=== PATIENT | male | born 1970 | race Caucasian/White ===

== ENCOUNTER → 2016-09-29 | Outpatient (CLI) | payer OTHER | LOC: RT 09:47 | PROVIDERS: ATTEND Neuromusculoskeletal Medicine, Sports Medicine | DX: Z02.71 Encounter for disability determination (principal) | CPT/HCPCS: 94060 ==

== ENCOUNTER → 2016-12-14 | Outpatient (CLI) | payer OTHER ==
--- NOTE | 2016-12-14 15:40 | Diagnostic Imaging Report ---
Ultrasound noninvasive extremity bilateral. INDICATION: Bilateral vascular reflux in legs. There are no prior studies available for comparison. The ankle-brachial indices of both lower extremities were obtained in the usual fashion. The ankle-brachial index on the right is 1.29 and on the left 1.15 (normal 1.00 or greater.) IMPRESSION: The ankle-brachial indices are within normal limits. Dictated by: Dictated on workstation # [id number]
== END ==
LOC: RAD 09:38
PROVIDERS: ATTEND Surgery
DX: Z02.71 Encounter for disability determination (principal)
CPT/HCPCS: 93922

== ENCOUNTER 2017-02-23 21:15 | Emergency (ER) | payer SELFPAY ==
[~2017-02-23] VITALS: Ht 170.2 cm; Wt 117.9 kg
--- NOTE | 2017-02-23 21:22 | ED Upper Extremity ---
General Stated Complaint: L HAND INJ/TETANUS SHOT Source: patient Exam Limitations: no limitations History of Present Illness Time seen by provider: 21:20 Initial Comments To ER with a 3 mm scratch to the dorsal aspect of the right knuckle from a ahyden nail. He like a tetanus shot. Onset: just prior to arrival Severity: mild Pain/Injury Location: left 2nd finger Method of Injury: unknown Modifying Factors: Worse With Movement Allergies and Home Medications Allergies Coded Allergies: chlorhexidine (Verified Allergy, Unknown, 06/03/16) Constitutional: see HPI EENTM: see HPI Respiratory: no symptoms reported Cardiovascular: no symptoms reported Genitourinary: no symptoms reported Musculoskeletal: no symptoms reported Skin: see HPI Past Vbdegxj-Ranpwr-Ibllnv Hx Patient Social History Type Used: Cigarettes Recent Foreign Travel: No Contact w/Someone Who Travel: No Recent Hopitalizations: No Seasonal Allergies Seasonal Allergies: No Surgeries HX Surgeries: Yes (BLE CATHETERIZATIONS) Surgeries: Coronary Stent Respiratory Hx Respiratory Disorders: Yes Respiratory Disorders: COPD Cardiovascular Hx Cardiac Disorders: Yes Cardiac Disorders: Coronary Artery Disease, Heart Attack, High Cholesterol Neurological Hx Neurological Disorders: No Genitourinary Hx Genitourinary Disorders: No Gastrointestinal Hx Gastrointestinal Disorders: No Musculoskeletal Hx Musculoskeletal Disorders: Yes (SCIATICA) Endocrine Hx Endocrine Disorders: Yes (BORDERLINE DM) HEENT HX ENT Disorders: No Cancer Hx Cancer: No Psychosocial Hx Psychiatric Problems: No Integumentary HX Skin/Integumentary Disorder: No Blood Transfusions Hx Blood Disorders: No Physical Exam Vital Signs Capillary Refill : General Appearance: WD/WN, no apparent distress HEENT: PERRL/EOMI, normal ENT inspection Neck: non-tender, full range of motion Respiratory: no respiratory distress, no accessory muscle use Gastrointestinal: normal bowel sounds, non tender, soft Shoulder: normal inspection, non-tender Elbow/Forearm: normal inspection, non-tender, no evidence of injury Wrist: Yes normal inspection, Yes non-tender Hand: normal inspection, no evidence of injury, Left, laceration (there is a 3 mm scratch the dorsal second MCP joint that does not require closure. There is no active bleeding. There is no erythema or swelling. No ecchymosis. Full range of motion of the hand and all fingers.) Neurologic/Tendon: normal sensation, normal motor functions, normal tendon functions Neurologic/Psychiatric: alert, normal mood/affect, oriented x 3 Departure Impression Impression: Primary Impression: Abrasion of hand Disposition: HOME, SELF-CARE Condition: Stable Departure-Patient Inst. Decision time for Depature: 21:22 Referrals: BISHOP GONZALEZ DO (PCP) Primary Care Physician FARZANEH FELICIANO APRN (Family) Primary Care Physician Patient Instructions: NO INSTRUCTIONS GIVEN Add. Discharge Instructions: 1. Return to ER for any concerns PAMELA DOMINGUEZ APRN Feb 23, 2017 21:22
[2017-02-23] MEDS ORDERED: TETANUS,DIPTH,PERTUSS P/F (BOOSTRIX) 0.5 ML VIAL IM ONE (21:30)
[2017-02-23 21:34] VITALS: BP 135/82
[2017-02-23] MEDS ORDERED: BACL10TA (22:12)
[2017-02-23] MEDS ORDERED: SERT50TA9 (22:12)
[2017-02-23] MEDS ORDERED: METF500T8 (22:12)
[2017-02-23] MEDS ORDERED: ROPI0.25 (22:12)
[2017-02-23] MEDS ORDERED: METO-333 (22:12)
[2017-02-23] MEDS ORDERED: OMEP40CA36 (22:12)
[2017-02-23] MEDS ORDERED: TIZA2TAB3 (22:12)
== END 2017-02-23 21:30 | disposition home or self-care (01) ==
LOC: EDUNIT# 21:15 → ER 21:17
DX: S60.511A Abrasion of right hand, initial encounter (principal); I25.10 Atherosclerotic heart disease of native coronary artery without angina pectoris; F17.210 Nicotine dependence, cigarettes, uncomplicated; J44.9 Chronic obstructive pulmonary disease, unspecified; Z95.5 Presence of coronary angioplasty implant and graft; X58.XXXA Exposure to other specified factors, initial encounter
CPT/HCPCS: 90471; 90715; 99282

== ENCOUNTER → 2017-03-12 | Emergency (ER) | payer OTHER ==
[~2017-03-12] VITALS: Ht 170.2 cm; Wt 117.9 kg
[~2017-03-12] MED LIST: ASPIRIN 81 MG CHEW (CHILDREN'S ASA) PO ONE; BACL10TA; METF500T8; METO-333; OMEP40CA36; ROPI0.25; RX-NITROGLYCERIN 0.4 MG TAB BTL 25'S SL PRN; SERT50TA9; TIZA2TAB3; morphine INJ 10 MG/ML 1ML (SYR OR VIAL) IV STA
--- NOTE | 2017-03-12 16:33 | ED Chest Pain ---
General Stated Complaint: CHEST PAIN Source: patient Exam Limitations: no limitations History of Present Illness Time seen by provider: 16:22 Initial Comments Patient presents to ER with his and child by private conveyance with concern for 2-3 days of progressively worsening intermittent substernal chest pain that becomes very severe with lots of pressure and it takes his breath away when it happens for several minutes. He does not take anything for it. He has not use any nitroglycerin last several days. He does recount that he's had 2 heart attacks in the past and has had 3 stents placed. Most recently was 2012 in [place]. He is on a cholesterol medicine as well as a took a baby aspirin this morning. He denies any thyroid problems but states he does have high blood pressure. He says he is a borderline diabetic. He does smoke but denies drinking or using any drugs in the past. He denies shortness of breath or nausea at this time. No sweats or chills. Allergies and Home Medications Allergies Coded Allergies: chlorhexidine (Verified Allergy, Unknown, 06/03/16) Home Medications Baclofen 10 Mg Tablet, #84 (Reported) Metformin HCl 500 Mg Tab.er.24h, #180 (Reported) Metoprolol Tartrate 25 Mg Tablet, #26 (Reported) Omeprazole 40 Mg Capsule.dr, #30 (Reported) Ropinirole HCl 0.25 Mg Tablet, #30 (Reported) Sertraline HCl 50 Mg Tablet, #30 (Reported) Tizanidine HCl 2 Mg Tablet, #90 (Reported) Review of Systems Constitutional: No chills, No diaphoresis, No fever, malaise EENTM: No Eye Pain, No Ear Pain Respiratory: Denies Shortness of Air, Denies Wheezing Cardiovascular: See HPI, Chest Pain, Denies Edema, Denies Irregular Heart Rate , Denies Palpitations, Denies Syncope Gastrointestinal: Denies Constipated, Denies Diarrhea, Denies Nausea, Denies Vomiting Genitourinary: Denies Burning, Denies Discharge Musculoskeletal: No back pain, No joint pain Skin: No pruritus, No rash Psychiatric/Neurological: Denies Headache, Denies Paresthesia Past Aviqavl-Yoedqk-Akgomq Hx Patient Social History Alcohol Use: Denies Use Recreational Drug Use: No Smoking Status: Current Everyday Smoker (1 ppd) Type Used: Cigarettes Recent Foreign Travel: No Contact w/Someone Who Travel: No Recent Hopitalizations: No Seasonal Allergies Seasonal Allergies: No Surgeries HX Surgeries: Yes (BLE CATHETERIZATIONS) Surgeries: Coronary Stent Respiratory Hx Respiratory Disorders: Yes Respiratory Disorders: COPD Cardiovascular Hx Cardiac Disorders: Yes Cardiac Disorders: Coronary Artery Disease, Heart Attack, High Cholesterol Neurological Hx Neurological Disorders: No Genitourinary Hx Genitourinary Disorders: No Gastrointestinal Hx Gastrointestinal Disorders: No Musculoskeletal Hx Musculoskeletal Disorders: Yes (SCIATICA) Endocrine Hx Endocrine Disorders: Yes (BORDERLINE DM) HEENT HX ENT Disorders: No Cancer Hx Cancer: No Psychosocial Hx Psychiatric Problems: No Integumentary HX Skin/Integumentary Disorder: No Blood Transfusions Hx Blood Disorders: No Physical Exam Vital Signs Vital Sign - Last 12Hours 03/12/17 03/12/17 16:28 16:29 Pulse 77 Resp 16 B/P (MAP) 115/74 Pulse Ox 98 O2 Delivery Nasal Cannula O2 Flow Rate 2.0 FiO2 100 Capillary Refill : General Appearance: WD/WN, Mild Distress HEENT: PERRL/EOMI, Pharynx Normal Neck: Full Range of Motion, Supple Respiratory: Lungs Clear, Normal Breath Sounds, No Respiratory Distress Cardiovascular: Regular Rate, Rhythm, No Edema, No Gallop, No JVD, No Murmur, Normal Peripheral Pulses Gastrointestinal: Normal Bowel Sounds, Non Tender, Soft Extremity: Normal Capillary Refill, Normal Inspection, No Calf Tenderness Neurologic/Psychiatric: Alert, Oriented x3 Skin: Normal Color, Warm/Dry Lymphatic: No Adenopathy Progress/Results/Core Measures Results/Orders Lab Results Laboratory Tests Test 03/12/17 16:33 Range/Units White Blood Count 9.6 4.3-11.0 10^3/uL Red Blood Count 4.99 4.35-5.85 10^6/uL Hemoglobin 14.5 13.3-17.7 G/DL Hematocrit 44 40-54 % Mean Corpuscular Volume 88 80-99 FL Mean Corpuscular Hemoglobin 29 25-34 PG Mean Corpuscular Hemoglobin Concent 33 32-36 G/DL Red Cell Distribution Width 13.4 10.0-14.5 % Platelet Count 222 130-400 10^3/uL Mean Platelet Volume 9.0 7.4-10.4 FL Neutrophils (%) (Auto) 49 42-75 % Lymphocytes (%) (Auto) 40 12-44 % Monocytes (%) (Auto) 9 0-12 % Eosinophils (%) (Auto) 3 0-10 % Basophils (%) (Auto) 0 0-10 % Neutrophils # (Auto) 4.7 1.8-7.8 X 10^3 Lymphocytes # (Auto) 3.8 1.0-4.0 X 10^3 Monocytes # (Auto) 0.8 0.0-1.0 X 10^3 Eosinophils # (Auto) 0.3 0.0-0.3 10^3/uL Basophils # (Auto) 0.0 0.0-0.1 10^3/uL Prothrombin Time 13.3 12.2-14.7 SEC INR Comment 1.0 0.8-1.4 Activated Partial Thromboplast Time 27 24-35 SEC D-Dimer 0.28 0.00-0.49 UG/ML Sodium Level 142 135-145 MMOL/L Potassium Level 3.6 3.6-5.0 MMOL/L Chloride Level 109 H 98-107 MMOL/L Carbon Dioxide Level 21 21-32 MMOL/L Anion Gap 12 5-14 MMOL/L Blood Urea Nitrogen 10 7-18 MG/DL Creatinine 0.76 0.60-1.30 MG/DL Estimat Glomerular Filtration Rate > 60 BUN/Creatinine Ratio 13 Glucose Level 100 70-105 MG/DL Calcium Level 9.0 8.5-10.1 MG/DL Magnesium Level 1.9 1.8-2.4 MG/DL Total Bilirubin 0.6 0.1-1.0 MG/DL Aspartate Amino Transf (AST/SGOT) 17 5-34 U/L Alanine Aminotransferase (ALT/SGPT) 14 0-55 U/L Alkaline Phosphatase 104 40-136 U/L Myoglobin 40.5 10.0-92.0 NG/ML Troponin I < 0.30 <0.30 NG/ML B-Type Natriuretic Peptide 17.0 <100.0 PG/ML Total Protein 6.6 6.4-8.2 GM/DL Albumin 3.8 3.2-4.5 GM/DL Amylase Level 29 25-125 U/L Lipase 8 8-78 U/L My Orders Orders - ARIAS NOVAK Cbc With Automated Diff (03/12/17 16:33) Magnesium (03/12/17 16:33) Chest 1 View, Ap/Pa Only (03/12/17 16:33) Ekg Tracing (03/12/17 16:33) Cardiac Profile 1 (03/12/17 16:33) Comprehensive Metabolic Panel (03/12/17 16:33) Myoglobin Serum (03/12/17 16:33) Protime With Inr (03/12/17 16:33) Partial Thromboplastin Time (03/12/17 16:33) O2 (03/12/17 16:33) Monitor-Rhythm Ecg Trace Only (03/12/17 16:33) Lipid Panel (03/13/17 06:00) Aspirin Chewable Tablet (Baby Aspirin Ch (03/12/17 16:45) Rx-Nitroglycerin Sl Tabs (Rx-Nitrostat S (03/12/17 16:45) Morphine Injection (Morphine Injection (03/12/17 16:33) Saline Lock/Iv-Start (03/12/17 16:33) Lipase (03/12/17 16:33) Amylase (03/12/17 16:33) BNP (03/12/17 16:33) Fibrin Degradation Products (03/12/17 16:33) Medications Given in ED Current Medications Medications Dose Ordered Sig/Yvonne Route Start Time Stop Time Status Last Admin Dose Admin Aspirin 324 mg ONCE ONCE PO 03/12/17 16:45 03/12/17 16:46 DC 03/12/17 16:41 324 MG Vital Signs/I&O Vital Sign - Last 12Hours 03/12/17 03/12/17 03/12/17 16:28 16:28 16:29 Pulse 77 Resp 16 B/P (MAP) 115/74 Pulse Ox 98 97 O2 Delivery Nasal Cannula Nasal Cannula O2 Flow Rate 2.0 2.0 2.00 FiO2 100 Progress Note : Time: 17:33 Progress Note Heart scores 5 which is moderate risk. This patient would probably benefit from an observation overnight. ECG Initial ECG Impression Date: Mar 12, 2017 Initial ECG Impression Time: 16:28 Initial ECG Rate: 79 Initial ECG Rhythm: Normal Sinus Initial ECG Intervals: Normal Initial ECG Impression: Nonspecific Changes Initial ECG Comparisson: No Previous ECG Available Comment No ST-T wave elevation or depression. Possible right bundle branch block incomplete. Diagnostic Imaging Diagonstic Imaging: Xray Plain Films/CT/US/NM/MRI: chest Comments No acute cardiopulmonary processes noted. NAME: LEANDRA KOTHARI REC#: [id number] PT STATUS: REG ER : 1970 PHYSICIAN: ARIAS NOVAK MD ADMIT DATE: 03/12/17/ER Draft Date of Exam:03/12/17 CHEST 1 VIEW, AP/PA ONLY INDICATION: Chest pain for three days. Baseline. FINDINGS: The lungs are well-aerated. There are no infiltrate. Heart is upper limits of normal. There is no evidence of pulmonary edema. No hilar adenopathy. No pneumothorax or pleural effusion. IMPRESSION: No acute changes demonstrated. Dictated on workstation # [id number] Dict: 03/12/17 1700 Trans: 03/12/171702 [facility] [id number] Interpreted by: OCTAVIO RILEY MD Reviewed: Reviewed by Me Departure Communication Time/Spoke to Consulting Physi: 17:36 Communication/Consulting Dr. Britany Warner: Discussed the case she is okay with observation and will see the patient in the morning. Impression Impression: Primary Impression: Chest pain Qualified Codes: R07.9 - Chest pain, unspecified Disposition: ADMITTED INPATIENT (obs) Condition: Stable Decision to Admit Reason: Admit from ER (General) Decision to Admit/Date: Mar 12, 2017 Time/Decision to Admit Time: 17:55 Departure-Patient Inst. Referrals: BISHOP GONZALEZ DO (PCP) Primary Care Physician FARZANEH FELICIANO APRN (Family) Primary Care Physician Copy Copies To 1: BISHOP GONZALEZ TITUS J Mar 12, 2017 16:33
[2017-03-12 16:40] LABS: BASOPHILS % (AUTO) 0 % (0-10); EOSINOPHILS # (AUTO) 0.3 10^3/uL (0.0-0.3); EOSINOPHILS % (AUTO) 3 % (0-10); LYMPHOCYTES # (AUTO) 3.8 X 10^3 (1.0-4.0); LYMPHOCYTES % (AUTO) 40 % (12-44); MEAN CORPUSCULAR HEMOGLOBIN 29 PG (25-34); MEAN CORPUSCULAR HGB CONC 33 G/DL (32-36); MEAN CORPUSCULAR VOLUME 88 FL (80-99); MONOCYTES # (AUTO) 0.8 X 10^3 (0.0-1.0); MONOCYTES % (AUTO) 9 % (0-12); NEUTROPHILS # (AUTO) 4.7 X 10^3 (1.8-7.8); NEUTROPHILS % (AUTO) 49 % (42-75); PLATELET COUNT 222 10^3/uL (130-400); RED BLOOD COUNT 4.99 10^6/uL (4.35-5.85); RED CELL DISTRIBUTION WIDTH 13.4 % (10.0-14.5); WHITE BLOOD COUNT 9.6 10^3/uL (4.3-11.0)
[2017-03-12 16:52] LABS: PROTHROMBIN TIME PATIENT 13.3 SEC (12.2-14.7)
[2017-03-12 17:02] LABS: ALANINE AMINOTRANSFERASE 14 U/L (0-55); ALBUMIN 3.8 GM/DL (3.2-4.5); AMYLASE 29 U/L (25-125); ANION GAP 12 MMOL/L (5-14); ASPARTATE AMINO TRANSFERASE 17 U/L (5-34); BILIRUBIN,TOTAL 0.6 MG/DL (0.1-1.0); BLOOD UREA NITROGEN 10 MG/DL (7-18); BUN/CREATININE RATIO 13; CARBON DIOXIDE 21 MMOL/L (21-32); CHLORIDE 109 MMOL/L (98-107); CREATININE SERUM 0.76 MG/DL (0.60-1.30); GFR ESTIMATED > 60; GLUCOSE 100 MG/DL (70-105); LIPASE 8 U/L (8-78); MAGNESIUM 1.9 MG/DL (1.8-2.4); POTASSIUM 3.6 MMOL/L (3.6-5.0); SODIUM 142 MMOL/L (135-145); TOTAL PROTEIN 6.6 GM/DL (6.4-8.2)
--- NOTE | 2017-03-12 17:03 | Diagnostic Imaging Report ---
INDICATION: Chest pain for three days. Baseline. FINDINGS: The lungs are well-aerated. There are no infiltrate. Heart is upper limits of normal. There is no evidence of pulmonary edema. No hilar adenopathy. No pneumothorax or pleural effusion. IMPRESSION: No acute changes demonstrated. Dictated by: Dictated on workstation # [id number]
[2017-03-12 17:08] LABS: MYOGLOBIN SERUM 40.5 NG/ML (10.0-92.0)
[2017-03-12 18:24] VITALS: BP 122/77
== END | disposition other institution (70) ==
LOC: EDUNIT# 16:28 → ER 16:29 → UNDOADMOB 17:55 → 4TH 17:55
DX: R07.2 Precordial pain (principal); I25.2 Old myocardial infarction; J44.9 Chronic obstructive pulmonary disease, unspecified; I25.10 Atherosclerotic heart disease of native coronary artery without angina pectoris; E78.00 Pure hypercholesterolemia, unspecified; R73.09 Other abnormal glucose; F17.210 Nicotine dependence, cigarettes, uncomplicated; Z95.5 Presence of coronary angioplasty implant and graft; Z79.84 Long term (current) use of oral hypoglycemic drugs
CPT/HCPCS: 36415; 71010; 80053; 82150; 83690; 83735; 83874; 83880; 84484; 85025; 85379; 85610; 85730; 93041

== ENCOUNTER 2017-03-20 17:52 | Emergency (ER) | payer SELFPAY ==
[~2017-03-20 17:52] MED LIST changes: -ASPIRIN 81 MG CHEW (CHILDREN'S ASA) PO ONE; -RX-NITROGLYCERIN 0.4 MG TAB BTL 25'S SL PRN; -morphine INJ 10 MG/ML 1ML (SYR OR VIAL) IV STA
[2017-03-20] MEDS ORDERED: ALBU18HF2 IH (19:24)
[2017-03-20] MEDS ORDERED: ASPI-586 PO (19:24)
[2017-03-20] MEDS ORDERED: GABA-486 PO (19:24)
[2017-03-20] MEDS ORDERED: TIOT18CA2 IH (19:24)
[2017-03-20] MEDS ORDERED: PRAS5TAB3 PO (19:24)
[2017-03-20 19:32] VITALS: BP 119/83
== END 2017-03-20 19:32 | disposition left against medical advice (07) ==
LOC: EDUNIT# 17:52 → ER 17:54
DX: S61.411A Laceration without foreign body of right hand, initial encounter (principal)
CPT/HCPCS: 99281

== ENCOUNTER 2017-03-23 19:27 | Emergency (ER) | payer SELFPAY ==
[~2017-03-23] VITALS: Ht 170.2 cm; Wt 117.9 kg
[~2017-03-23 19:27] MED LIST changes: +ALBU18HF2 IH; +ASPI-586 PO; +GABA-486 PO; +PRAS5TAB3 PO; +TIOT18CA2 IH
--- NOTE | 2017-03-23 19:57 | ED Lower Extremity ---
General Chief Complaint: Lower Extremity Stated Complaint: FALL Nursing Triage Note: Was pulling mili and one gave way, rolled ankle and heard a pop. Mod swelling to rt ankle, No loc, auguste neck pain or back pain. States ankle nam but that is normal Nursing Sepsis Screen: No Definite Risk Source: patient Exam Limitations: no limitations (VANCE NGUYEN MD) History of Present Illness Time seen by provider: 19:32 Initial Comments here by EMS with report of right foot and ankle pain. He apparently was pulling mili when the binding gave away and he fell backwards and twisted his ankle. He felt a pop in his foot. Denies other injury. No abrasions or lacerations. He was working outside in the heat and EMS did establish an IV and have normal saline running. This is continuing. This was started due to concerns for being overheated. Patient is feeling better now and declines pain medicine. Onset: just prior to arrival (30-45 minutes ago) Severity: moderate Pain/Injury Location: right foot, right ankle Method of Injury: fell, twisted Modifying Factors: Improves With Immobilization, Worse With Movement (VANCE NGUYEN MD) Allergies and Home Medications Allergies Coded Allergies: chlorhexidine (Verified Allergy, Unknown, 06/03/16) Home Medications Albuterol Sulfate 18 Gm Hfa.aer.ad, 18 GM IH, (Reported) Aspirin 81 Mg Tablet.dr, 81 MG PO, (Reported) Gabapentin 100 Mg Capsule, Unknown Dose PO, (Reported) Metformin HCl 500 Mg Tab.er.24h, #180 (Reported) Metoprolol Tartrate 25 Mg Tablet, #26 (Reported) Omeprazole 40 Mg Capsule.dr, #30 (Reported) Prasugrel HCl 5 Mg Tablet, Unknown Dose PO, (Reported) Sertraline HCl 50 Mg Tablet, #30 (Reported) Tiotropium Conroy 1 Inh Aerp, 1 INH IH, (Reported) Constitutional: see HPI, No chills, No fever Respiratory: no symptoms reported Cardiovascular: no symptoms reported Musculoskeletal: see HPI, joint pain, joint swelling Skin: no symptoms reported Psychiatric/Neurological: No Symptoms Reported (VANCE NGUYEN MD) Past Rldhrzh-Waqkjy-Hxwzfi Hx Patient Social History Alcohol Use: Denies Use Recreational Drug Use: No Type Used: Cigarettes Recent Foreign Travel: No Contact w/Someone Who Travel: No Recent Infectious Disease Expo: No Recent Hopitalizations: No (VANCE NGUYEN MD) Immunizations Up To Date Tetanus Booster (TDap): Less than 5yrs (VANCE NGUYEN MD) Seasonal Allergies Seasonal Allergies: No (VANCE NGUYEN MD) Surgeries HX Surgeries: Yes (BLE CATHETERIZATIONS) Surgeries: Coronary Stent (VANCE NGUYEN MD) Respiratory Hx Respiratory Disorders: Yes Respiratory Disorders: COPD (VANCE NGUYEN MD) Cardiovascular Hx Cardiac Disorders: Yes Cardiac Disorders: Coronary Artery Disease, Heart Attack, High Cholesterol, Peripheral Vascular (VANCE NGUYEN MD) Neurological Hx Neurological Disorders: No (VANCE NGUYEN MD) Genitourinary Hx Genitourinary Disorders: No (VANCE NGUYEN MD) Gastrointestinal Hx Gastrointestinal Disorders: No (VANCE NGUYEN MD) Musculoskeletal Hx Musculoskeletal Disorders: Yes (SCIATICA) (VANCE NGUYEN MD) Endocrine Hx Endocrine Disorders: Yes (BORDERLINE DM) (VANCE NGUYEN MD) HEENT HX ENT Disorders: No (VANCE NGUYEN MD) Cancer Hx Cancer: No (VANCE NGUYEN MD) Psychosocial Hx Psychiatric Problems: No (VANCE NGUYEN MD) Integumentary HX Skin/Integumentary Disorder: No (VANCE NGUYEN MD) Blood Transfusions Hx Blood Disorders: No (VANCE NGUYEN MD) Reviewed Nursing Assessment Reviewed/Agree w Nursing PMH: Yes (VANCE NGUYEN MD) Family Medical History Significant Family History: No Pertinent Family Hx (VANCE NGUYEN MD) Physical Exam Vital Signs Vital Sign - Last 12Hours 03/23/17 19:27 Temp 97.8 Pulse 85 Resp 18 B/P (MAP) 133/80 Pulse Ox 97 (OCHOA OQUENDO) Vital Signs Capillary Refill : Less Than 3 Seconds (VANCE NGUYEN MD) General Appearance: WD/WN, no apparent distress Cardiovascular: regular rate, rhythm, no murmur Respiratory: lungs clear, normal breath sounds Ankles: right ankle swelling, right ankle other (no obvious deformity. Mild swelling about the anterior portion of the ankle. Retains range of motion but has some pain limitation in dorsiflexion and plantarflexion. Medial and lateral malleolar surfaces are intact and without pain on palpation.) Feet: right foot soft tissue tenderness (tender to the proximal dorsum of foot with mild swelling. No obvious deformity. Retains range of motion. Still movement and sensation intact.) Neurologic/Psychiatric: alert, oriented x 3 Skin: normal color, warm/dry (VANCE NGUYEN MD) Ankles: right ankle limited range of motion, right ankle soft tissue tenderness (OCHOA OQUENDO) Progress/Results/Core Measures Results/Orders Vital Signs/I&O Vital Sign - Last 12Hours 03/23/17 03/23/17 19:27 20:28 Temp 97.8 Pulse 85 81 Resp 18 18 B/P (MAP) 133/80 Pulse Ox 97 99 (OCHOA OQUENDO) Blood Pressure Mean: 97 Progress Note : Progress Note seen and evaluated. X-ray right foot and ankle ordered. Patient declined pain medicine. Monitor patient. (VANCE NGUYEN MD) Progress Note : Progress Note 2009 x-ray findings reviewed with patient no fractures dislocations or acute bony abnormalities noted. 4 in Alfredito wrap applied to right ankle and foot. Patient declined need for pain medicine. Patient able to bear weight and stand on ankle, ambulated with trace antalgic gait. He has crutches to use at home as needed (OCHOA OQUENDO) Diagnostic Imaging Diagonstic Imaging: Xray Plain Films/CT/US/NM/MRI: ankle Comments NAME: LEANDRA KOTHARI [facility] REC#: [id number] PT STATUS: REG ER : 1970 PHYSICIAN: VANCE NGUYEN MD ADMIT DATE: 03/23/17/ER Signed Date of Exam: 03/23/17 ANKLE, RIGHT, 3 VIEWS INDICATION: Pain. FINDINGS: The alignment is normal. The plafonds and talar dome are intact. The ankle mortise is symmetric. There appears to be an old healed fracture of the distal fibula. There are degenerative changes. Tiny avulsion fracture of the distal fibula cannot be excluded. There is no other fracture or dislocation. IMPRESSION: Small avulsion fracture off the distal fibula cannot be excluded. Degenerative and old posttraumatic changes as described. Dictated by: Dictated on workstation # [id number] Dict: 03/23/172003 Trans: 03/23/172017 Interpreted by: MESSI PEREZ Electronically signed by: MESSI PEREZ 03/23/172017 Reviewed: Reviewed by Me (no pain at the distal fibula), Reviewed/Discussed (with Dr. Nguyen, agreed with interpretation) Diagonstic Imaging: Xray Plain Films/CT/US/NM/MRI: other (foot) Comments NAME: LEANDRA KOTHARI [facility] REC#: [id number] PT STATUS: REG ER : 1970 PHYSICIAN: VANCE NGUYEN MD ADMIT DATE: 03/23/17/ER Signed Date of Exam: 03/23/17 FOOT, RIGHT, 3 VIEW INDICATION: Pain. EXAMINATION: Three views were obtained. FINDINGS: The alignment is normal. There is degenerative spurring of the calcaneus. There is a small osseous density about the distal fibula suspect for an avulsion fracture. Soft tissues are otherwise unremarkable. IMPRESSION: 1. Tiny ossific density distal to the fibula. Small avulsion fracture cannot be excluded. 2. Otherwise, degenerative changes but without other fracture or dislocation Dictated by: Dictated on workstation # [id number] Dict: 03/23/172002 Trans: 03/23/172017 Interpreted by: MESSI PEREZ Electronically signed by: MESSI PEREZ 03/23/172017 Reviewed: Reviewed by Me, Reviewed/Discussed (with Dr. Nguyen, agreed with interpretation) (OCHOA OQUENDO) Departure Impression Impression: Primary Impression: Ankle sprain Qualified Codes: S93.411A - Sprain of calcaneofibular ligament of right ankle , initial encounter Disposition: 01 HOME, SELF-CARE Condition: Improved Departure-Patient Inst. Decision time for Depature: 20:10 (OCHOA OQUENDO) Referrals: BISHOP GONZALEZ DO (PCP/Family) Primary Care Physician Patient Instructions: Ankle Sprain (DC) Add. Discharge Instructions: Ice to right ankle 20 minutes every 2 hours. Alfredito wrap when up during the day. Use crutches as needed, if unable to weight-bear. Advance activities as tolerated. Return to emergency department for increased pain, difficulty ambulating, or new injuries Ibuprofen 600 mg every 8 hours, and/or Tylenol 650 mg every 6 hours for pain Follow-up at [facility] in one week if continued symptoms. All discharge instructions reviewed with patient and/or family. Voiced understanding. Copy Copies To 1: BISHOP GONZALEZ TIMOTHY D MD Mar 23, 2017 19:57 OCHOA OQUENDO Mar 23, 2017 20:20
--- NOTE | 2017-03-23 20:14 | Diagnostic Imaging Report ---
INDICATION: Pain. EXAMINATION: Three views were obtained. FINDINGS: The alignment is normal. There is degenerative spurring of the calcaneus. There is a small osseous density about the distal fibula suspect for an avulsion fracture. Soft tissues are otherwise unremarkable. IMPRESSION: 1. Tiny ossific density distal to the fibula. Small avulsion fracture cannot be excluded. 2. Otherwise, degenerative changes but without other fracture or dislocation Dictated by: Dictated on workstation # [id number]
--- NOTE | 2017-03-23 20:16 | Diagnostic Imaging Report ---
INDICATION: Pain. FINDINGS: The alignment is normal. The plafonds and talar dome are intact. The ankle mortise is symmetric. There appears to be an old healed fracture of the distal fibula. There are degenerative changes. Tiny avulsion fracture of the distal fibula cannot be excluded. There is no other fracture or dislocation. IMPRESSION: Small avulsion fracture off the distal fibula cannot be excluded. Degenerative and old posttraumatic changes as described. Dictated by: Dictated on workstation # [id number]
[2017-03-23 20:28] VITALS: BP 130/80
== END 2017-03-23 20:28 | disposition home or self-care (01) ==
LOC: EDUNIT# 19:27 → ER 19:28
DX: S93.401A Sprain of unspecified ligament of right ankle, initial encounter (principal); I25.2 Old myocardial infarction; I25.10 Atherosclerotic heart disease of native coronary artery without angina pectoris; E78.00 Pure hypercholesterolemia, unspecified; Z79.82 Long term (current) use of aspirin; Z79.84 Long term (current) use of oral hypoglycemic drugs; Z95.5 Presence of coronary angioplasty implant and graft; W18.30XA Fall on same level, unspecified, initial encounter; X50.0XXA Overexertion from strenuous movement or load, initial encounter
CPT/HCPCS: 73610; 73630

== ENCOUNTER → 2018-05-19 | Outpatient (CLI) | payer SELFPAY ==
[~2018-05-19] MED LIST changes: -ROPI0.25; +ROPI0.253
--- NOTE | 2018-05-19 12:13 | Diagnostic Imaging Report ---
PROCEDURE: MRI lumbar spine. TECHNIQUE: Multiplanar, multisequence MRI of the lumbar spine was performed without contrast. INDICATION: Low back pain, left-sided sciatica. COMPARISON: Study compared 06/03/2016. FINDINGS: Posterolateral to the top of the upper pole of the left kidney is partial visualization of retroperitoneal T2 hyperintense nodule presumed cystic, unchanged from the study of 2016. No new or suspect paravertebral mass, hemorrhage or fluid collection found. The visualized aorta is nonaneurysmal. Lumbar vertebral body heights are maintained. There is trace 1 mm retrolisthesis of L5 with respect to the remaining segments unchanged. No acute lumbar abnormality. Marrow signal intensity normal. The conus normal. The nerves of the cauda equina revealed a normal pattern of dispersal. T12-L1: There is no canal, foraminal or recess stenosis. L1-L2: Disc desiccation and mild bulge without focal herniation results in no stenosis. L2-L3: This level and disc normal. L3-L4: The distant endplates normal. There is mild thickening of ligamenta flava and mild facet arthrosis. There is however no canal, foraminal or recess stenosis. L4-L5: There is hypertrophic facet arthrosis with thickening of ligamenta flava. There is disc desiccation and mild disc bulge. There is mild canal stenosis at the disc space level predominately owing to the posterior element hypertrophy. There is mild to moderate degrees of biforaminal stenosis not significantly changed. The left lateral recess may be mildly narrowed in its AP dimension owing to facet disease at the L5 level. L5-S1: Eccentric disc bulge to the right results in at least moderate severity of right-sided neural foraminal stenosis unchanged from prior. The disc did not appear to impinge upon the S1 lateral recess. Spinal canal showed no significant narrowing. There is degenerative facet arthrosis and thickening of the ligamentum flava. IMPRESSION: No substantial change from prior stenosis greatest on the right at the L5-S1 level owing to eccentric disc bulge with trace L5 grade 1 degenerative retrolisthesis chronic. No high-grade canal stenosis. No acute bony pathology. More mild stenoses listed level by level above. Dictated by: Dictated on workstation # [id number]
== END ==
LOC: RAD 09:37
PROVIDERS: ATTEND Nurse Practitioner Family
DX: M48.061 Spinal stenosis, lumbar region without neurogenic claudication (principal); M51.17 Intervertebral disc disorders with radiculopathy, lumbosacral region; M99.73 Connective tissue and disc stenosis of intervertebral foramina of lumbar region; M47.27 Other spondylosis with radiculopathy, lumbosacral region; M43.16 Spondylolisthesis, lumbar region
CPT/HCPCS: 72148